=== PATIENT | male | born 1950 | race Caucasian/White ===

== ENCOUNTER 2017-01-11 09:02 | Day surgery (SDC) | payer BC ==
[~2017-01-11] VITALS: Ht 203.2 cm; Wt 129.0 kg
[~2017-01-11 09:02] MED LIST: ASPIRIN325 MG PO; CADUET 5/401 TABLET PO; COZAAR25 MG PO; ELIQUIS5 MG PO; GLIPIZIDE10 MG PO; JANUMET 50/11 TABLET PO; METOPROLOL SUCC50 MG PO; SOTALOL AF80 MG PO; SOTALOL160 MG PO; TRAMADOL HCL50 MG PO
[2017-01-11 09:43] LABS: POINT-OF-CARE METER ID UU13113696
== END 2017-01-11 11:45 | disposition home or self-care (01) ==
LOC: CATH 09:02
PROVIDERS: Internal Medicine Cardiovascular Disease
DX: I48.91 Unspecified atrial fibrillation (principal); G47.33 Obstructive sleep apnea (adult) (pediatric); R09.02 Hypoxemia; I47.2 Ventricular tachycardia; I25.10 Atherosclerotic heart disease of native coronary artery without angina pectoris; Z95.5 Presence of coronary angioplasty implant and graft; Z95.810 Presence of automatic (implantable) cardiac defibrillator; I42.0 Dilated cardiomyopathy; I10 Essential (primary) hypertension; E78.2 Mixed hyperlipidemia; E11.9 Type 2 diabetes mellitus without complications; E66.9 Obesity, unspecified; Z68.33 Body mass index [BMI] 33.0-33.9, adult; Z88.8 Allergy status to other drugs, medicaments and biological substances
CPT/HCPCS: 82948; 93312

== ENCOUNTER 2017-01-31 14:32 | Emergency (ER) | payer BC ==
[~2017-01-31] VITALS: Ht 203.2 cm; Wt 128.3 kg
[2017-01-31 18:19] VITALS: BP 123/75
== END 2017-01-31 18:20 | disposition home or self-care (01) ==
LOC: EME 14:32
DX: S00.83XA Contusion of other part of head, initial encounter (principal); W22.09XA Striking against other stationary object, initial encounter; I48.91 Unspecified atrial fibrillation; Z79.01 Long term (current) use of anticoagulants; G89.29 Other chronic pain; M54.2 Cervicalgia; M25.511 Pain in right shoulder; J32.0 Chronic maxillary sinusitis; I10 Essential (primary) hypertension; Z79.82 Long term (current) use of aspirin; Z79.84 Long term (current) use of oral hypoglycemic drugs
CPT/HCPCS: 70450; 99281; 99283

== ENCOUNTER → 2017-10-08 | Outpatient (CLI) | payer OTHER | END | disposition home or self-care (01) | LOC: RAD 13:00 | DX: Z01.810 Encounter for preprocedural cardiovascular examination (principal); I48.0 Paroxysmal atrial fibrillation; I25.10 Atherosclerotic heart disease of native coronary artery without angina pectoris; I51.9 Heart disease, unspecified; I51.7 Cardiomegaly; R93.1 Abnormal findings on diagnostic imaging of heart and coronary circulation | CPT/HCPCS: 75574 ==

== ENCOUNTER → 2017-11-01 | Outpatient (CLI) | payer OTHER ==
[~2017-11-01] VITALS: Ht 198.1 cm; Wt 127.0 kg
[~2017-11-01] MED LIST changes: -ASPIRIN325 MG PO; +LO-DOSE ASPIRIN81 M1 PO
[2017-11-01 10:24] LABS: INTER. NORMALIZED RATIO 1.4
== END | disposition home or self-care (01) ==
LOC: AMB 10-29 09:30
PROVIDERS: Anesthesiology; Internal Medicine Cardiovascular Disease
PROC: B246ZZ4 Ultrasonography of Right and Left Heart, Transesophageal (ICD-10-PCS; principal; 2017-11-01)
DX: I48.1 Persistent atrial fibrillation (principal); I42.9 Cardiomyopathy, unspecified; Z95.810 Presence of automatic (implantable) cardiac defibrillator; I25.10 Atherosclerotic heart disease of native coronary artery without angina pectoris; E11.9 Type 2 diabetes mellitus without complications; I10 Essential (primary) hypertension
CPT/HCPCS: 82948; 85610; 85730; 93005; 93312; J2250